=== PATIENT | female | born 1985 | race Caucasian/White ===

== ENCOUNTER 2016-08-20 07:38 | Day surgery (SDC) | payer OTHER ==
[~2016-08-20] VITALS: Ht 165.1 cm; Wt 82.4 kg
[2016-08-20] VITALS (9 sets, daily range): BP systolic 109–132; BP diastolic 56–71; PULSE 59–83; RESP 14–20; Ht 165.1 cm; Wt 82.4 kg
[2016-08-20] MEDS ORDERED: PANT40TA3 PO (08:55)
[2016-08-20] MEDS ORDERED: DICY10CA60 PO (08:55)
[2016-08-20] MEDS ORDERED: PROPOFOL 40 ML ONE (09:28)
[2016-08-20] MEDS ORDERED: LIDOCAINE 2% (SDV) 5 ML INJ ONE (09:29)
--- NOTE | 2016-08-20 13:07 | GILP ---
DATE OF PROCEDURE: NAME OF PROCEDURES: 1. Esophagogastroduodenoscopy and biopsy. 2. Colonoscopy and biopsy. SURGEON: Branden Duke MD PREOPERATIVE DIAGNOSES: 1. Abdominal pain. 2. Chronic diarrhea. POSTOPERATIVE DIAGNOSES: 1. Hiatal hernia. 2. Gastroesophageal reflux disease. 3. Gastritis with erosions. 4. Biopsy was positive for Helicobacter pylori test. 5. Small bowel biopsies were taken to rule out celiac disease. 6. Colonoscopy all the way to the cecum and into the terminal ileum. 7. Normal terminal ileum. 8. Random biopsies were taken to rule out microscopic colitis. 9. Internal hemorrhoids. INDICATION FOR THE PROCEDURE: Ms. Karyn Argueta is a 31-year-old female patient who had upper abdo ginna pain and chronic heartburn, not responding to therapy. The patient was scheduled for endoscop ic examination and colonoscopy for further evaluation. The procedures and possible complications were well explained to the patient, she understood and con sented to the procedure. DESCRIPTION OF PROCEDURE: Under the influence of anesthesia, the gastroscope was carefully introduc ed into the esophagus and under direct vision, it was advanced to the stomach and through the pyloru s into the duodenal bulb and descending duodenum. FINDINGS: ESOPHAGUS: The patient had hiatal hernia and gastroesophageal reflux disease. STOMACH: She had gastritis. Gastric mucosal biopsies were taken for H. pylori test and it was posi tive. DUODENUM: Normal. Small bowel biopsies were taken to rule out celiac disease. The colonoscope was carefully introduced in the rectum and under direct vision, it was advanced all the way to the cecum and through the ileocecal valve into the terminal ileum. FINDINGS: The terminal ileum was normal. The colonic mucosa was normal. Random biopsies were take n to rule out microscopic colitis. The patient was noted to have internal hemorrhoids. She tolerated the procedures very well and there was no complication from the procedures. At the en d of the procedures, she was awake with stable vital signs and she was discharged home to the care o f her family. IMPRESSION: Please see postoperative diagnosis. PLAN: 1. Continue pantoprazole. 2. Bentyl p.r.n. for abdominal pain or diarrhea. 3. Zantac 300 mg p.o. b.i.d. for 14 days. 4. Doxycycline 100 mg p.o. b.i.d. for 14 days. 5. Flagyl 500 mg p.o. b.i.d. for 14 days. 6. Pepto-Bismol 2 tablets p.o. q.i.d. for 14 days. Dictated By: BRANDEN BEARDEN/KIMI Conf#: [id number] DID#: [id number]
--- NOTE | 2016-08-20 20:21 | CONS ---
DATE OF ADMISSION: 08/20/2016 DATE OF CONSULTATION: TYPE OF CONSULTATION: Preoperative gastroenterology. I thank you very much for this kind referral. HISTORY OF PRESENT ILLNESS: Ms. Karyn Argueta is a 31-year-old female patient who has been referred to me for further evaluation of abdominal pain and chronic diarrhea. The patient states sh tad has got epigastric pain which is not responding to therapy with Protonix. There is no past histor y of peptic ulcer disease. She is not taking any nonsteroidal anti-inflammatory agents. Her appeti te has been good, but she said that she has been losing weight. She is status post cholecystectomy. She does not have any fever, chills or jaundice. There is no history of liver disease. The patie nt went to the emergency room. She had abdominal CT scan done, and according to her, it was normal. The patient also complains of chronic diarrhea. There is no past history of inflammatory bowel di sease. She is not a hypertensive or diabetic. She does not have any heart disease or lung problem. There is no history of kidney disease. SOCIAL HISTORY: She is a smoker. She does not abuse alcohol. FAMILY HISTORY: Negative for gastrointestinal tract neoplasm. ALLERGIES: THERE IS NO HISTORY OF SIGNIFICANT DRUG ALLERGY. MEDICATIONS: Protonix. PHYSICAL EXAMINATION: GENERAL: She is 5 feet 5 inches tall, and she weighs 180 pounds. HEART: Normal first and second heart sounds. LUNGS: Clear. ABDOMEN: Soft without any distention. Liver and spleen not palpable. There are no masses. There is no focal tenderness. Normal bowel sounds are heard. CENTRAL NERVOUS SYSTEM: Examination does not reveal any focal neurological deficit. IMPRESSION: 1. Upper abdominal pain not responding to therapy with Protonix. 2. The patient also complains of weight loss. 3. Chronic diarrhea. 4. Status post cholecystectomy. 5. The patient had abdominal CT scan, and she said that it was normal. 6. The patient is a smoker. PLAN: 1. Continue Protonix. 2. Bentyl 10 mg p.o. t.i.d. a.c. for abdominal pain and diarrhea. 3. Endoscopy and colonoscopy for further evaluation. 4. Because of the obesity with a short, thick neck, she needs monitored anesthesia care for the pro cedures. The procedures and possible complications are well explained to the patient. She understands and co nsents to the procedures. I thank you once again. With warmest personal regards, Dictated By: TALA BEARDEN/KIMI Conf#: [id number] DID#: [id number]
== END 2016-08-20 12:21 | disposition home or self-care (01) ==
LOC: GIL 07:38
PROVIDERS: ATTEND Internal Medicine Gastroenterology
DX: K44.9 Diaphragmatic hernia without obstruction or gangrene (principal); K21.9 Gastro-esophageal reflux disease without esophagitis; K29.60 Other gastritis without bleeding; K64.8 Other hemorrhoids; E66.9 Obesity, unspecified; Z68.30 Body mass index [BMI] 30.0-30.9, adult
CPT/HCPCS: 84703; 87081; 88305